=== PATIENT | male | born 1950 | race Caucasian/White ===

== ENCOUNTER → 2018-01-17 | Day surgery (SDC) | payer OTHER ==
[~2018-01-17] MED LIST: INTESTINEX1 CA1 PO; PERCOCET 5/3251 TAB PO; PRILOSEC20 MG PO
== END | disposition home or self-care (01) ==
LOC: ADM 01-14 12:30 → AMB-ENDOS 07:10
DX: D12.7 Benign neoplasm of rectosigmoid junction (principal)